=== PATIENT | male | born 1970 | race Caucasian/White ===

== ENCOUNTER 2021-09-12 01:52 | Day surgery (SDC) | payer BC, SELFPAY ==
[2021-08-25 14:48] VITALS: BMI 31.8
--- NOTE | 2021-09-12 08:18 | P.PNAN_ITS ---
Anes - Initial Pre Proc Eval Procedure: Operation Date: 09/12/21 11:00 Proposed Procedures p Screening Colonoscopy - Sterling Singleton MD Date/Time: 09/12/21 08:18 Surgeon: Sterling Singleton MD Pre Op Diagnosis: neoplasm screening Patient Data Age: 51 Gender: M Height: 1.73 m Weight: 95 kg Allergies Allergy/AdvReac Type Severity Reaction Status Date / Time No Known Allergies Allergy Verified 09/12/21 10:24 Home Medications Medication Instructions Recorded Confirmed Type amlodipine 10 mg PO DAILY 08/25/21 09/12/21 History benazepril 40 mg PO DAILY 08/25/21 09/12/21 History omeprazole 20 mg PO DAILY 08/25/21 09/12/21 History triamterene-hydrochlorothiazid 1 tablet PO DAILY 08/25/21 09/12/21 History Patient hx anesthesia problems: none Family hx anesthesia problems: none Results Review: All pre-operative results and documents have been reviewed as part of the pre-operative evaluation. [facility] Past Medical History Medical History (Updated 09/12/21 @ 08:18 by Ethan Cid MD) Chronic GERD HTN (hypertension) Obesity Family History Family History (Updated 06/18/14 @ 07:13 by DOCTOR UNKNOWN) Other Family history of genetic disorder Social History Social History Smoking status: Never smoker Alcohol intake: never Living arrangements: with family Spiritual care concerns: No Anes - Eval Final PreProcedure Day of Procedure 09/12/21 08:18 Patient weight: obese Heart: regular rate and rhythm Lungs: clear to auscultation and normal air movement Airway: Mallampati scale class II Neurological: alert and oriented Last oral intake: >/= 8 hours ASA classification: III Emergent: no Anesthetic plan: proceed Anesthesia type and monitoring: general GIVS Results Review: All pre-operative results and documents have been reviewed as part of the pre-operative evaluation. Informed Consent: The patient's anesthetic plan and its attendant risks and benefits were discussed with the patient/family/POA. Questions were solicited and answers provided to the satisfaction of the patient/family/POA.
[2021-09-12 10:26] VITALS: BMI 31.6
[2021-09-12] MEDS: LACTATED RINGERS 1,000 ML 150 ML IV CONT (10:29)
--- NOTE | 2021-09-12 10:37 | WPDGICN ---
Assessment and Plan Assessment and plan (1) Encounter for screening colonoscopy: Code(s): Z12.11 - Encounter for screening for malignant neoplasm of colon Status: Acute Assessment and Plan: Patient presents for screening colonoscopy. Family history is significant for his father having colon polyps. A grandparent had colon cancer. Further recommendations will be given after colonoscopy. GI Consult Note Consult date/time: 09/12/21 10:37 HPI: Brayden Lei is a 51 year old male Presents for screening colonoscopy. Patient's current weight appetite bowel movements are normal. Patient denies abdominal pain. He has had no bleeding. Family history is significant his father had colon polyps. A grandparent had colon cancer. Patient desires neoplasia screening. Review of Systems Review of Systems: All systems reviewed & are unremarkable except as noted in HPI and below PMFSH Past Medical History Medical History (Updated 09/12/21 @ 10:38 by Sterling Singleton MD) Chronic GERD HTN (hypertension) Obesity Family History Family History (Updated 06/18/14 @ 07:13 by DOCTOR UNKNOWN) Other Family history of genetic disorder Social History Social History Smoking status: Never smoker Alcohol intake: never Living arrangements: with family Spiritual care concerns: No Meds Home Medications and Allergies Home Medications Medication Instructions Recorded Confirmed Type amlodipine 10 mg PO DAILY 08/25/21 09/12/21 History benazepril 40 mg PO DAILY 08/25/21 09/12/21 History omeprazole 20 mg PO DAILY 08/25/21 09/12/21 History triamterene-hydrochlorothiazid 1 tablet PO DAILY 08/25/21 09/12/21 History Allergies Allergy/AdvReac Type Severity Reaction Status Date / Time No Known Allergies Allergy Verified 09/12/21 10:24 Exam Narrative: Physical exam reveals patient be alert. Vital signs stable. HEENT exam is unremarkable. Patient is anicteric. Lungs are clear to auscultation and percussion. Heart is without murmur or extra sounds. Abdominal exam bowel sounds are present soft nontender with no organomegaly. Digital external rectal exam is normal.
[2021-09-12 10:57] VITALS: BP 106/68; PULSE 70; RESP 23; O2SAT 98
[2021-09-12 11:07] VITALS: BP 114/75; PULSE 69; RESP 21; O2SAT 99
[2021-09-12 11:17] VITALS: BP 121/77; PULSE 68; RESP 17; O2SAT 99
== END 2021-09-12 11:20 | disposition home or self-care (01) ==
PROVIDERS: PCP Family Medicine; Visit Provider Internal Medicine Gastroenterology
PROC: 0DJD8ZZ Inspection of Lower Intestinal Tract, Via Natural or Artificial Opening Endoscopic (ICD-10-PCS; CPT 45378; principal; 2021-09-12 11:00)
DX: Z12.11 Encounter for screening for malignant neoplasm of colon (principal); Z83.71 Family history of colonic polyps; K21.9 Gastro-esophageal reflux disease without esophagitis; I10 Essential (primary) hypertension; E66.9 Obesity, unspecified; Z68.31 Body mass index [BMI] 31.0-31.9, adult
CPT/HCPCS: 45378; J2704; J7120